=== PATIENT | male | born 1935 ===

== ENCOUNTER 2024-07-15 06:58 | Day surgery (SDC) | payer OTHER ==
[2024-07-15] MEDS ORDERED: DIPHENHYDRAMINE HCL 50 MG/ML VIAL 1ML IV ONE (08:15)
[2024-07-15] MEDS ORDERED: MIDAZOLAM HCL 2 MG/2 ML VIAL IV ONE (08:15)
[2024-07-15] MEDS ORDERED: fentaNYL CITRATE 50 MCG/ML AMPUL IV ONE (08:15)
== END 2024-07-15 10:25 | disposition home or self-care (01) ==
LOC: AMB-ENDOS 06:58
PROVIDERS: ATTEND Surgery
DX: D12.8 Benign neoplasm of rectum (principal); D12.9 Benign neoplasm of anus and anal canal; K62.89 Other specified diseases of anus and rectum